=== PATIENT | female | born 1980 | race American Indian/Alaskan Native ===

== ENCOUNTER 2018-08-13 21:25 | Emergency (ER) | payer SELFPAY ==
--- NOTE | 2018-08-13 21:51 | Emergency Department Report ---
ED ENT HPI - General Chief complaint: Earache Stated complaint: POSS L EYE/L EAR INFECTION Time Seen by Provider: 08/13/18 21:45 Source: patient Mode of arrival: Ambulatory Limitations: No Limitations - History of Present Illness Initial comments: Pt is a 37 yo female left eye redness, eye drainage, eyelash matting, crusting. pt states she is having left ear pain and drainage that began last week. does not wear contacts. no fever. no sick contacts. no PMHx. allergy to penicillin: hives. no vision changes - Related Data Previous Rx's Medication Instructions Recorded Last Taken Type Erythromycin [Erythromycin Ophth 0.5 inch OS QID 7 Days #1 tube 08/13/18 Unknown Rx Oint] Neomycin/Polymyxin B/Hydrocort 4 drops QID 7 Days drops.susp 08/13/18 Unknown Rx [Luzpggxj-Wbntzptyo-Wj Ear Susp] ED Dental HPI - General Chief complaint: Earache Stated complaint: POSS L EYE/L EAR INFECTION Time Seen by Provider: 08/13/18 21:45 Source: patient Mode of arrival: Ambulatory Limitations: No Limitations - Related Data Previous Rx's Medication Instructions Recorded Last Taken Type Erythromycin [Erythromycin Ophth 0.5 inch OS QID 7 Days #1 tube 08/13/18 Unknown Rx Oint] Neomycin/Polymyxin B/Hydrocort 4 drops QID 7 Days drops.susp 08/13/18 Unknown Rx [Qljhupri-Fejvvlsry-Fl Ear Susp] ED Review of Systems ROS: Stated complaint: POSS L EYE/L EAR INFECTION Other details as noted in HPI Comment: All other systems reviewed and negative ED Past Medical Hx - Medications Home Medications: Home Medications Medication Instructions Recorded Confirmed Last Taken Type Erythromycin [Erythromycin Ophth 0.5 inch OS QID 7 Days #1 tube 08/13/18 Unknown Rx Oint] Neomycin/Polymyxin B/Hydrocort 4 drops QID 7 Days drops.susp 08/13/18 Unknown Rx [Wbxjrcat-Jxvuujwny-Xo Ear Susp] ED Physical Exam - General Limitations: No Limitations General appearance: alert, in no apparent distress - Head Head exam: Present: atraumatic, normocephalic - Eye Eye exam: Present: PERRL, conjunctival injection (left), other (mucus drainage in the corner of the left eye) - ENT ENT exam: Present: normal orophraynx, other (erythema and purulence of the left ear canal, normal TMs bilaterally, normal right canal, no perforation) - Respiratory Respiratory exam: Absent: respiratory distress - Neurological Exam Neurological exam: Present: alert, oriented X3 - Psychiatric Psychiatric exam: Present: normal affect, normal mood - Skin Skin exam: Present: warm, dry, intact ED Course Vital Signs 08/13/18 21:44 Temperature 98.2 F Pulse Rate 76 Respiratory 18 Rate Blood Pressure 133/85 O2 Sat by Pulse 98 Oximetry ED Medical Decision Making - Medical Decision Making examination consistent with otitis externa and conjunctivitis. pt given abx drops for the ear and abx ointment for the eye. advised to take medication as prescribed. follow up with PCP in the next 2-3 days for reevaluation. return to the emergency room for any new or worsening symptoms. Critical care attestation.: If time is entered above; I have spent that time in minutes in the direct care of this critically ill patient, excluding procedure time. ED Disposition Clinical Impression: Left otitis externa Qualifiers: Otitis externa type: unspecified type Chronicity: acute Qualified Code(s): H60.502 - Unspecified acute noninfective otitis externa, left ear Left conjunctivitis Qualifiers: Conjunctivitis type: acute Acute conjunctivitis type: unspecified Qualified Code(s): H10.32 - Unspecified acute conjunctivitis, left eye Disposition: TO HOME OR SELFCARE Is pt being admited?: No Does the pt Need Aspirin: No Condition: Stable Instructions: Otitis Externa (ED), Conjunctivitis (ED) Additional Instructions: Please use medication as prescribed. Please follow up with a primary care doctor in the next 2-3 days for reevaluation. take tylenol or ibuprofen for discomfort. drink plenty of fluids. do not rub the eye. return to the emergency room for any new or worsening symptoms. Prescriptions: Erythromycin [Erythromycin Ophth Oint] 0.5 inch OS QID 7 Days #1 tube Neomycin/Polymyxin B/Hydrocort [Swembnpn-Nxkhihosh-Vx Ear Susp] 4 drops QID 7 Days drops.susp Referrals: [facility] [Provider Group] - 3-5 Days Forms: Work/School Release Form(ED) Time of Disposition: 21:52 Print Language: SWAZI
[2018-08-13 22:11] VITALS: BP 133/85
== END 2018-08-13 22:16 | disposition home or self-care (01) ==
LOC: ED 21:25
DX: H60.92 Unspecified otitis externa, left ear (principal); H10.9 Unspecified conjunctivitis